=== PATIENT | male | born 1995 | race Two or more races ===

== ENCOUNTER 2016-08-15 18:02 | Emergency (ER) | payer MEDICAID, OTHER ==
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
[2016-08-15] MEDS ORDERED: fentaNYL 100 MCG/2 ML INJ IVP ONE ×2 (18:11→19:00)
[2016-08-15] MEDS ORDERED: NS 1,000 ML IV ONE (18:11)
[2016-08-15 19:46] VITALS: BP 118/72; PULSE 79; RESP 18; TEMP 98.6; O2SAT 96
== END 2016-08-15 19:45 | disposition home or self-care (01) ==
DX: T22.252A Burn of second degree of left shoulder, initial encounter (principal); X17.XXXA Contact with hot engines, machinery and tools, initial encounter
CPT/HCPCS: 96374; J3010